=== PATIENT | male | born 1955 | race Asian ===

== ENCOUNTER 2018-11-22 08:09 | Day surgery (SDC) | payer OTHER ==
[2018-11-22] MEDS ORDERED: LIDOCAINE 4% SOLUTION 50 ML BTL (09:05)
[2018-11-22] MEDS ORDERED: MIDAZOLAM 1 MG/ML 2 ML INJ ×2 (09:54)
[2018-11-22] MEDS ORDERED: FENTAnyl 50 MCG/ML VIAL (09:54)
== END 2018-11-22 10:21 | disposition home or self-care (01) ==
LOC: GIL 08:09
DX: K20.8 Other esophagitis (principal); K29.80 Duodenitis without bleeding; I10 Essential (primary) hypertension
CPT/HCPCS: 43239; 88305; 88312; 88313